=== PATIENT | male | born 1955 | race Caucasian/White ===

== ENCOUNTER 2025-01-12 16:40 | Emergency (ER) | payer BC ==
[~2025-01-12] VITALS: Ht 175.3 cm; Wt 75.0 kg
[2025-01-12 16:50] VITALS: O2SAT 98
[2025-01-12] MEDS ORDERED: LISI2.5T47 PO (17:07)
[2025-01-12] MEDS ORDERED: LIDOCAINE HCL/EPINEPHRINE 1%-EPI 1:100,000 20ML VIAL INFIL ONE (17:45)
[2025-01-12] MEDS ORDERED: TETANUS, DIPHTHERIA, PERTUSSIS VAC/PF 0.5ML (>10YR OLD) IM ONE (17:45)
[2025-01-12] MEDS: TETANUS, DIPHTHERIA, PERTUSSIS VAC/PF 0.5ML (>10YR OLD) IM ONE (19:32)
[2025-01-12] MEDS: LIDOCAINE HCL/EPINEPHRINE 1%-EPI 1:100,000 20ML VIAL INFIL NR (20:15)
[2025-01-12] MEDS: LIDOCAINE HCL 1% 20ML VIAL INFIL ONE (20:45)
[2025-01-12] MEDS ORDERED: CEPH500T MT (23:44)
[2025-01-13] MEDS: KETOROLAC 30MG/ML VIAL IM ONE
[2025-01-13 00:09] VITALS: BP 141/85; PULSE 100; RESP 20; TEMP 36.8; O2SAT 98
== END 2025-01-13 00:12 | disposition home or self-care (01) ==
LOC: ER 16:40
DX: S81.812A Laceration without foreign body, left lower leg, initial encounter (principal); I10 Essential (primary) hypertension; R51.9 Headache, unspecified; Z98.890 Other specified postprocedural states; Z79.899 Other long term (current) drug therapy; W19.XXXA Unspecified fall, initial encounter; Y93.89 Activity, other specified; Y92.89 Other specified places as the place of occurrence of the external cause; Y99.8 Other external cause status
CPT/HCPCS: 73562; 73590; 70450; 72125; 72128; 72131; 90715; 12007; 90471; 96365; 99285; 96372; J0690; J1885; J2004; J2003; Z7610 ×9